=== PATIENT | male | born 1975 | race African-American/Black ===

== ENCOUNTER 2023-11-26 21:33 | Inpatient (IN) | payer MEDICAID, OTHER ==
[~2023-11-26] VITALS: Ht 172.7 cm; Wt 118.0 kg
[2023-11-26 22:24] LABS: Urine Bacteria None Seen /hpf (None Seen)
[2023-11-26 22:34] LABS: Urine Blood Negative /uL (Negative); Urine Clarity Clear (Clear); Urine Color Colorless (Yellow); Urine Protein, UAD Negative (Negative); Urine Specific Gravity 1.007 (1.001-1.035); Urine Urobilinogen Normal (Negative); Urine WBC <1 /hpf (0 - 3); Urine pH 6.5 (5.0-9.0)
[2023-11-26] MEDS: KETOROLAC TROMETH 30 MG/ML 1ML VIAL IV ONE (23:09)
[2023-11-26] MEDS: fentaNYL CITRATE 100 MCG/2 ML VL IV ONE (23:16)
[2023-11-27] VITALS (12 sets, daily range): BP systolic 129–154; BP diastolic 71–97; PULSE 59–109; RESP 16–20; TEMP 97.6–98.3; O2SAT 94–100
[2023-11-27] MEDS ORDERED: MORPHINE SULFATE INJ 2 MG/ml SYRG IV PRN
[2023-11-27] MEDS ORDERED: NITROGLYCERIN 0.4 MG SL TAB SL PRN
[2023-11-27] MEDS: MORPHINE SULFATE INJ 2 MG/ml SYRG IV ONE (02:13)
[2023-11-27] MEDS ORDERED: ACETAMINOPHEN 325 MG TAB PO PRN (02:15)
[2023-11-27] MEDS ORDERED: ALPRAZolam 0.25 MG TAB PO PRN (02:15)
[2023-11-27] MEDS: NIFEdipine ER 30 MG TAB PO SCH (02:15)
[2023-11-27 02:38] LABS: Basophils # (auto) 0.1 10 ^3/uL (0-0.2); Basophils % (auto) 0.7 % (0.0-2.0); Eosinophils # (auto) 0 10 ^3/uL (0-0.8); Eosinophils % (auto) 0.1 % (0.0-7.0); Hematocrit 34.3 % (41.0-53.0); Hemoglobin 10.9 g/dL (13.5-17.5); Lymphocytes # (auto) 1.2 10 ^3/uL (0.4-5.4); Lymphocytes % (auto) 6.4 % (10.0-50.0); Mean Corpuscular Hemoglobin 23.5 pg (28.0-32.0); Mean Corpuscular Hgb Conc. 31.9 g/dL (32.0-36.0); Mean Corpuscular Volume 73.7 fL (80.0-100.0); Monocytes # (auto) 0.4 10 ^3/uL (0-1.3); Neutrophils # (auto) 17.5 10 ^3/uL (1.6-8.6); Neutrophils % (auto) 90.8 % (37.0-80.0); Nucleated Red Blood Cells % 0.2 %; Platelet Count (auto) 459 10^3/uL (140-450); Red Blood Cells 4.65 10^6/uL (4.5-5.90); Red Cell Distribution Width 19.8 % (11.8-14.3); White Blood Cell 19.3 10^3/uL (4.4-10.8)
[2023-11-27 02:52] LABS: Alanine Aminotransferase 24 U/L (7-40); Albumin 4.3 g/dL (3.2-4.8); Alkaline Phosphatase 65 U/L (46-116); Anion Gap 13 (5-15); Aspartate Aminotransferase 18 U/L (13-40); BUN/Creatinine Ratio 8.8 (10.0-20.0); Bilirubin, Total 0.3 mg/dL (0.2-1.0); Blood Urea Nitrogen 7 mg/dL (9-23); Calcium 8.9 mg/dL (8.7-10.4); Carbon Dioxide 18 mmol/L (20-31); Chloride 109 mmol/L (98-107); Glucose 198 mg/dL (74-106); Sodium 140 mmol/L (136-145); Total Protein 6.8 g/dL (5.7-8.2)
[2023-11-27 02:55] LABS: INR 1.07 (0.9-1.15); Partial Thromboplastin Time 24.5 SEC (24.5-34.5); Prothrombin Time 11.3 sec (9.3-11.8)
[2023-11-27] MEDS: HYDROcodone-ACET 10/325MG TAB PO PRN (03:34)
[2023-11-27] MEDS: ENOXAPARIN SOD 120 MG/0.8 ML SYRINGE SC ONE (03:34)
[2023-11-27] MEDS: PANTOPRAZOLE 40 MG TAB PO SCH (06:37)
[2023-11-27] MEDS: MORPHINE SULFATE INJ 2 MG/ml SYRG IV PRN (06:38)
[2023-11-27] MEDS: VANCOMYCIN 1.5GM/300ML 300 ML IV ONE (06:45)
[2023-11-27] MEDS: cefTRIAXone 1GM/50ML D5W 50 ML IV ONE (07:14)
[2023-11-27] MEDS: SODIUM CHLORIDE 0.9% 500 ML IV ONE (07:14)
[2023-11-27 08:15] LABS: Lactic Acid w/Reflex 2.6 mmol/L (0.4-2.0)
[2023-11-27] MEDS ORDERED: PRED20TA2 PO (08:18)
[2023-11-27] MEDS ORDERED: FURO40TA4 PO (08:18)
[2023-11-27] MEDS ORDERED: GABA-1250 PO (08:18)
[2023-11-27] MEDS ORDERED: ALPR2TAB6 PO (08:18)
[2023-11-27] MEDS ORDERED: METH-1181 PO (08:18)
[2023-11-27] MEDS ORDERED: ATEN100T PO (08:18)
[2023-11-27] MEDS ORDERED: ALBU108A5 INH (08:18)
[2023-11-27] MEDS ORDERED: HYDR25TA87 PO (08:18)
[2023-11-27] MEDS ORDERED: METH-867 PO (08:18)
[2023-11-27] MEDS: ATENOLOL 25 MG TAB PO SCH (09:51)
[2023-11-27 10:32] LABS: Folate (Folic Acid) 4.86 ng/mL (>5.38)
[2023-11-27] MEDS: THIAMINE 100mg/ml INJ (200mg/2ml VIAL) IV ONE (12:00)
[2023-11-27] MEDS: FOLIC ACID 1 MG in D5W 5% 50 ML INJ ONE (14:56)
[2023-11-27] MEDS: ENOXAPARIN SOD 120 MG/0.8 ML SYRINGE SC SCH (15:22)
[2023-11-27] MEDS: IOHEXOL 350 MG/ML 100ML IJ ONE (15:53)
[2023-11-27] MEDS: FOLIC ACID 1 MG, MULTIPLE VITAMIN 10 ML, MAGNESIUM SULF SDV 50% 8 MEQ, THIAMINE INJ 100... INJ SCH (19:03)
[2023-11-27] MEDS: ALBUTEROL SULF 2.5 MG/0.5ML(0.5%) NEB SOLN NEB PRN (19:31)
[2023-11-27] MEDS: IPRATROPIUM BROM 0.5 MG/2.5ML INH SOL NEB PRN (19:31)
[2023-11-27] MEDS: ceFAZolin 1GM/50ML 50 ML IV SCH (22:26)
[2023-11-28] VITALS (7 sets, daily range): BP systolic 129–144; BP diastolic 69–93; PULSE 60–89; RESP 18–20; TEMP 97.5–98.1; O2SAT 92–100
[2023-11-28] MEDS: SODIUM CHLORIDE 0.9% 500 ML IV ONE (05:24)
[2023-11-28 07:17] LABS: Basophils # (auto) 0.1 10 ^3/uL (0-0.2); Basophils % (auto) 0.5 % (0.0-2.0); Hemoglobin 9.7 g/dL (13.5-17.5); Monocytes # (auto) 1.3 10 ^3/uL (0-1.3); Nucleated Red Blood Cells % 0.1 %
[2023-11-28 07:19] LABS: Eosinophils # (auto) 0.1 10 ^3/uL (0-0.8); Eosinophils % (auto) 0.6 % (0.0-7.0); Hematocrit 31.1 % (41.0-53.0); Lymphocytes # (auto) 3.3 10 ^3/uL (0.4-5.4); Lymphocytes % (auto) 21.1 % (10.0-50.0); Mean Corpuscular Hemoglobin 23.3 pg (28.0-32.0); Mean Corpuscular Hgb Conc. 31.3 g/dL (32.0-36.0); Mean Corpuscular Volume 74.4 fL (80.0-100.0); Monocytes % (auto) 8.3 % (0.0-12.0); Neutrophils % (auto) 69.5 % (37.0-80.0); Platelet Count (auto) 374 10^3/uL (140-450); Red Blood Cells 4.18 10^6/uL (4.5-5.90); Red Cell Distribution Width 19.8 % (11.8-14.3); White Blood Cell 15.9 10^3/uL (4.4-10.8)
[2023-11-28 07:23] LABS: Chloride 112 mmol/L (98-107); Potassium 3.8 mmol/L (3.5-5.1); Sodium 142 mmol/L (136-145)
[2023-11-28 07:24] LABS: Anion Gap 7 (5-15); Calcium 8.5 mg/dL (8.7-10.4); Carbon Dioxide 23 mmol/L (20-31)
[2023-11-28 07:29] LABS: BUN/Creatinine Ratio 12.9 (10.0-20.0); Blood Urea Nitrogen 9 mg/dL (9-23); Glucose 103 mg/dL (74-106)
[2023-11-28] MEDS: MAGNESIUM OXIDE 400 MG TAB PO SCH (16:36)
[2023-11-28] MEDS: THIAMINE HCL 100 MG TAB PO SCH (16:36)
[2023-11-28] MEDS: FOLIC ACID 1 MG TAB PO SCH (16:36)
[2023-11-28] MEDS: MULTIPLE VITAMIN TAB PO SCH (16:36)
== END 2023-11-28 16:20 | disposition home or self-care (01) | DRG 347 ==
LOC: EDBD 21:33 → ER 21:33 → OVERFLOW 23:53 → WEST WING 11-27 07:45
PROVIDERS: ADMIT Internal Medicine Geriatric Medicine; ATTEND Internal Medicine Geriatric Medicine
DX: M51.26 Other intervertebral disc displacement, lumbar region (principal); R65.10 Systemic inflammatory response syndrome (SIRS) of non-infectious origin without acute organ dysfunction; F10.130 Alcohol abuse with withdrawal, uncomplicated; F17.210 Nicotine dependence, cigarettes, uncomplicated; J44.9 Chronic obstructive pulmonary disease, unspecified; I10 Essential (primary) hypertension; G89.29 Other chronic pain; Z79.899 Other long term (current) drug therapy; Y90.2 Blood alcohol level of 40-59 mg/100 ml
CPT/HCPCS: 36415; 71045; 71275; 72131; 72148; 73630; 80048; 80053; 80320; 81001; 82607; 82746; 83605; 85025; 85379; 85610; 85730; 93970; 94640; G0378; J1885; J7060